=== PATIENT | female | born 1980 | race Two or more races ===

== ENCOUNTER 2024-09-02 04:54 | Inpatient (IN) | payer MEDICAID ==
[~2024-09-02] VITALS: Ht 165.1 cm; Wt 89.3 kg
[2024-09-02 06:22] LABS: Basophils # (auto) 0 10 ^3/uL (0-0.2); Basophils % (auto) 0.4 % (0.0-2.0); Eosinophils # (auto) 0 10 ^3/uL (0-0.8); Eosinophils % (auto) 0.1 % (0.0-7.0); Hematocrit 44.6 % (36.0-46.0); Hemoglobin 15.4 g/dL (12.2-16.2); Lymphocytes % (auto) 10.6 % (10.0-50.0); Mean Corpuscular Hemoglobin 29.4 pg (28.0-32.0); Mean Corpuscular Hgb Conc. 34.5 g/dL (32.0-36.0); Mean Corpuscular Volume 85.1 fL (80.0-100.0); Monocytes # (auto) 0.3 10 ^3/uL (0-1.3); Monocytes % (auto) 3.1 % (0.0-12.0); Neutrophils # (auto) 8.2 10 ^3/uL (1.6-8.6); Neutrophils % (auto) 85.8 % (37.0-80.0); Platelet Count (auto) 222 10^3/uL (140-450); Red Blood Cells 5.24 10^6/uL (4.0-5.20); Red Cell Distribution Width 15.1 % (11.8-14.3); White Blood Cell 9.6 10^3/uL (4.4-10.8)
--- NOTE | 2024-09-02 06:24 | ED.PDOC ---
GI ASSESSMENT HPI Comments 44 y/o F, with no prior medical history presents to the ED for CC of abdominal pain. Patient states, she has been experiencing RUQ abdominal pain that radiates to her back with associated symptoms of nausea and vomiting since, 2100 last night (09/01/24). Patient complains, of current 10/10 abdominal pain and is visibly in distress. Patient denies dysuria, hematuria, or fever. No other symptoms or modifying factors present at this time. Chief Complaint: Abdominal Pain Time Seen by MD: 06:19 Reviewed Notes: Nurses Notes, Medications, Allergies Allergies: Coded Allergies: No Known Drug Allergy (Verified Allergy, Unknown, 09/02/24) Information Source: Patient Mode of Arrival: Ambulatory Timing: Hours Duration: Since onset Prehospital treatment: None Quality: None Vomitus: Watery Stool: Normal Severity: Moderate Recent Hx of: None Pain Location: RUQ Modifying Factors: Nothing Associated sign and symptoms: Nausea, Vomiting, Abdominal Pain Past Medical History PAST MEDICAL HISTORY: Denies Surgical History: [employer]NA[employer] History: Unknown Family History Family History: Unknown Social History Smoker: Non-Smoker Alcohol: Denies ETOH Use Drugs: Denies Drug Use Lives In: Home Constitutional: reports: chills, sweats; denies: diaphoresis, fatigue, fever, malaise, weakness, others EENTM: denies: blurred vision, double vision, ear bleeding, ear discharge, ear drainage, ear pain, ear ringing, eye pain, eye redness, hearing loss, mouth pain, mouth swelling, nasal discharge, nose bleeding, nose congestion, nose pain, photophobia, tearing, throat pain, throat swelling, voice changes, others Respiratory: denies: cough, hemoptysis, orthopnea, SOB at rest, shortness of breath, SOB with excertion, stridor, wheezing, others Cardiovascular: denies: chest pain, dizzy spells, diaphoresis, Dyspnea on exertion, edema, irregular heart beat, left arm pain, lightheadedness, palpitations, PND, syncope, others Gastrointestinal: reports: abdominal pain, nausea, vomiting; denies: abdomen distended, blood streaked bowels, constipated, diarrhea, dysphagia, difficulty swallowing, hematemesis, melena, poor appetite, poor fluid intake, rectal bleeding, rectal pain, others Genitourinary: denies: abnormal vagina bleeding, burning, dyspareunia, dysuria, flank pain, frequency, hematuria, incontinence, pain, , vagina discharge , urgency, others Neurological: denies: dizziness, fainting, headache, left sided numbness, left sided weakness, numbness, paresthesia, pre-existing deficit, right sided numbness, right sided weakness, seizure, speech problems, tingling, tremors, weakness, others Musculoskeletal: reports: back pain; denies: gout, joint pain, joint swelling, muscle pain, muscle stiffness, neck pain, others Integumetry: denies: bruises, change in color, change in hair/nails, dryness, laceration, lesions, lumps, rash, wounds, others Allergic/Immunocompromised: denies: Difficulty Healing, Frequent Infections, Hives, Itching, others Hematologic/Lymphatic: denies: anemia, blood clots, easy bleeding, easy bruising, swollen glands, others Endocrine: denies: excessive hunger, excessive sweating, excessive thirst, excessive urination, flushing, intolerance to cold, intolerance to heat, unexplained weight gain, unexplained weight loss, others Psychiatric: denies: anxiety, bipolar disorder, depression, hopeless, panic disorder, schizophrenia, sleepless, suicidal, others All Other Systems: Reviewed and Negative Physical Exam General Appearance: Moderate Distress, Obese HEENT: Normal ENT Inspection, Pharynx Normal, TMs Normal Neck: Full Range of Motion, Non-Tender, Normal, Normal Inspection Respiratory: Chest Non-Tender, Lungs Clear, No Accessory Muscle Use, No Respiratory Distress, Normal Breath Sounds Cardiovascular: No Edema, No JVD, No Murmur, No Gallop, Normal Peripheral Pul ses, Regular Rate/Rhythm Breast Exam: Deferred Gastrointestinal: No Organomegaly, No Pulsatile Mass, Normal Bowel Sounds, RUQ, Soft, Tenderness Genitalia: Deferred Pelvic: Deferred Rectal: Deferred Extremities: No calf tenderness, Normal capillary refill, Normal inspection, Normal range of motion, Non-tender, No pedal edema Musculoskeletal : Apperance: Normal Neurologic: Alert, cash poster II-XII nml as Tested, No Motor Deficits, Normal Affect, Normal Mood, No Sensory Deficits Cerebellar Function: Normal Reflexes: Normal Skin: Dry, Normal Color, Warm Lymphatic: No Adenopathy Was a procedure done? Was a procedure done?: No GI differential Dx Differential Diagnosis: Cholangitis, Cholecystitis, Pancreatitis X-Ray, Labs, Meds, VS Vital Signs Date Time Temp Pulse Resp B/P (MAP) Pulse Ox O2 Delivery O2 Flow Rate FiO2 09/02/24 07:09 71 16 110/68 09/02/24 07:05 97.9 71 16 110/68 (82) 98 97.9 09/02/24 07:05 71 16 98 Room Air* 0 21 09/02/24 05:29 97.8 83 22 112/73 (86) 98 97.8 Lab Test 09/02/24 05:58 Range/Units White Blood Count 9.6 4.4-10.8 10^3/uL Red Blood Count 5.24 H 4.0-5.20 10^6/uL Hemoglobin 15.4 12.2-16.2 g/dL Hematocrit 44.6 36.0-46.0 % Mean Corpuscular Volume 85.1 80.0-100.0 fL Mean Corpuscular Hemoglobin 29.4 28.0-32.0 pg Mean Corpuscular Hemoglobin Concent 34.5 32.0-36.0 g/dL Red Cell Distribution Width 15.1 H 11.8-14.3 % Platelet Count 222 140-450 10^3/uL Mean Platelet Volume 10.0 6.9-10.8 fL Neutrophils (%) (Auto) 85.8 H 37.0-80.0 % Lymphocytes (%) (Auto) 10.6 10.0-50.0 % Monocytes (%) (Auto) 3.1 0.0-12.0 % Eosinophils (%) (Auto) 0.1 0.0-7.0 % Basophils (%) (Auto) 0.4 0.0-2.0 % Neutrophils # (Auto) 8.2 1.6-8.6 10 ^3/uL Lymphocytes # (Auto) 1.0 0.4-5.4 10 ^3/uL Monocytes # (Auto) 0.3 0-1.3 10 ^3/uL Eosinophils # (Auto) 0 0-0.8 10 ^3/uL Basophils # (Auto) 0 0-0.2 10 ^3/uL Nucleated Red Blood Cells 0.0 % Sodium Level 136 136-145 mmol/L Potassium Level 3.5 3.5-5.1 mmol/L Chloride Level 105 98-107 mmol/L Carbon Dioxide Level 21 20-31 mmol/L Anion Gap 10 5-15 Blood Urea Nitrogen 13 9-23 mg/dL Creatinine 0.75 0.550-1.02 mg/dL Glomerular Filtration Rate Calc 101 >90 mL/min BUN/Creatinine Ratio 17.3 10.0-20.0 Serum Glucose 133 H 74-106 mg/dL Calcium Level 10.0 8.7-10.4 mg/dL Total Bilirubin Pending Direct Bilirubin Pending Aspartate Amino Transferase (AST) Pending Alanine Aminotransferase (ALT) Pending Alkaline Phosphatase Pending Total Protein Pending Albumin Pending Lipase 41 12-53 U/L Current Medications Medications (Trade) Dose Ordered Sig/Ba Route Start Time Stop Time Status Last Admin Ondansetron HCl (Zofran) 4 mg ONCE ONCE IV 09/02/24 06:30 09/02/24 06:31 DC 09/02/24 07:02 Sodium Chloride 1,000 ml @ 1,000 mls/hr Q1H ONCE IVB 09/02/24 06:30 09/02/24 07:29 DC 09/02/24 07:05 Morphine Sulfate 4 mg ONCE ONCE IV 09/02/24 06:30 09/02/24 06:31 DC 09/02/24 07:09 Pantoprazole Sodium (Protonix) 40 mg ONCE ONCE IV 09/02/24 06:30 09/02/24 06:31 DC 09/02/24 07:02 Ultrasound of the gallbladder shows: IMPRESSION: 1. Suspected small gallstone at the gallbladder neck and gallbladder wall thick ening. Acute cholecystitis not excluded, although a negative sonographic Escobar's sign was reported. 2. Common tail artifact associated with the gallbladder wall, may be seen with adenomyomatosis. 3. Mild hepatomegaly. The patient was given Zofran 4 mg IV push for the nausea The patient was given morphine 4 mg IV push for the pain The patient was given Protonix 40 mg IV push The patient was bolused with normal saline at 1 L bolus The patient's lipase is within normal limits The CBC is within normal limits The chemistry panel is within normal limits The liver enzymes are pending The patient was being admitted at this time with a diagnosis of intractable pain and acute cholecystitis Images Reviewed?: Images reviewed and evaluated by me Time of 1ST Reevaluation: 09:49 Reevaluation 1ST: Unchanged Patient Education/Counseling: Diagnosis, Treatment, Prognosis Family Education/Counseling: No Family Present Departure 1 Departure Time of Disposition: 07:34 Impression: Primary Impression: Acute cholecystitis Additional Impression: Intractable abdominal pain Disposition: ADMITTED INPATIENT Admit to: Med Surg Condition: Fair Critical Care Note Critical Care Time?: No Stability Stability form required: Yes Unstable for transfer: ED Physician Assesment (Clinical assesment) Heart Score Heart Score: Heart Score Response (Comments) Value History N/A 0 EKG N/A 0 Age N/A 0 Risk Factors N/A 0 Troponin N/A 0 Total 0 I personally scribed for RD SHERMAN MD ([email or web address]) on 09/02/24 at 06:24. Electronically submitted by Latrice Ling ([email or web address]). RD SHERMAN MD September 02, 2024 06:24
[2024-09-02 06:30] LABS: Chloride 105 mmol/L (98-107); Potassium 3.5 mmol/L (3.5-5.1); Sodium 136 mmol/L (136-145)
[2024-09-02 06:31] LABS: Anion Gap 10 (5-15); Carbon Dioxide 21 mmol/L (20-31)
[2024-09-02 06:37] LABS: BUN/Creatinine Ratio 17.3 (10.0-20.0); Blood Urea Nitrogen 13 mg/dL (9-23); Glucose 133 mg/dL (74-106)
[2024-09-02] MEDS: PANTOPRAZOLE 40 MG/10 ML VIAL INJ IV ONE (07:02)
[2024-09-02] MEDS: ONDANSETRON HCL 4 MG/2 ML VIAL IV ONE (07:02)
[2024-09-02 07:05] VITALS: PULSE 71; RESP 16; O2SAT 98
[2024-09-02] MEDS: SODIUM CHLORIDE 0.9% 1,000 ML IVB ONE (07:05)
--- NOTE | 2024-09-02 07:06 | DVH ---
CLINICAL INFORMATION: 44 years old, Female; pain. TECHNIQUE: Grayscale sonographic imaging of the right upper quadrant of the abdomen was performed, a ssisted by color Doppler techniques. COMPARISON: None FINDINGS: The gallbladder wall measures 5.4 mm in thickness, abnormally thickened. There are areas of suspected, tail artifact, which may be seen with adenomyomatosis in the appropriate clinical sett ing. Suspected shadowing gallstone at the gallbladder neck. Negative reported sonographic escobar's si gn. The common bile duct measures 4.4 mm in diameter, within normal limits. The liver is enlarged, measuring up to 17 cm in craniocaudal dimension. Echogenicity is within normal limits. The pancreas is obscured by bowel gas. The right kidney measures 11.2 cm. There is no hydronephrosis. Right renal cortical echogenicity a nd cortical thickness are within normal limits. IMPRESSION: 1.Suspected small gallstone at the gallbladder neck and gallbladder wall thickening. Acute cholecys titis not excluded, although a negative sonographic Escobar's sign was reported. 2.Common tail artifact associated with the gallbladder wall, may be seen with adenomyomatosis. 3.Mild hepatomegaly.
[2024-09-02] MEDS: MORPHINE SULFATE 4 MG/ML SYR/VIAL IV ONE (07:09)
[2024-09-02 08:03] LABS: Albumin 4.7 g/dL (3.2-4.8); Bilirubin, Direct 0.2 mg/dL (<0.3); Bilirubin, Total 0.8 mg/dL (0.2-1.0); Total Protein 7.7 g/dL (5.7-8.2)
[2024-09-02 08:30] LABS: Urine Bacteria FEW /hpf (None Seen); Urine Blood 3+ /uL (Negative); Urine Clarity Turbid (Clear); Urine Color Light-Brown (Yellow); Urine Protein, UAD TRACE (Negative); Urine Specific Gravity 1.008 (1.001-1.035); Urine Squamous Epithelial Cell FEW /hpf (<5); Urine Urobilinogen Normal (Negative); Urine WBC 18 /HPF (0-5); Urine pH 8.5 (5.0-9.0)
[2024-09-02] MEDS ORDERED: ACETAMINOPHEN 325 MG TAB PO PRN (09:45)
[2024-09-02] MEDS ORDERED: ONDANSETRON HCL 4 MG/2 ML VIAL IV PRN (09:45)
[2024-09-02] MEDS ORDERED: HYDROcodone-ACET 5/325MG TAB PO PRN (09:45)
--- NOTE | 2024-09-02 09:56 | DVHHP2 ---
History of Present Illness Reason for Visit: Abdominal pain History of Present Illness Arina Jimenez is a 44-year-old female with past medical history of C- section who presents to the ED with abdominal pain with nausea and vomiting x1 day. Patient reports that the pain is now 4/10 constant and feels hard after the pain medication. Prior to the pain medication she states it was 10/10. Kirill is at the bedside. Upon examination Cali sign positive. Patient reports that she was vomiting food contents but no blood or bile noted. Patient denies any recent travels, recent sick contacts, recent trauma or injury, fever, chills, chest pain, shortness of breath, diarrhea, lightheadedness, weakness, and dizziness. Patient reports that she does not take medications nor does she drink, smoke, or use illicit drugs. Past Surgical History: Family History: None Smoke: No ALCOHOL: none Drugs: None Lives: with Family Domestic Violence: Neg Review of Systems Gastrointestinal: Nausea, Vomiting, Abdominal Pain Allergies: Coded Allergies: No Known Drug Allergy (Verified Allergy, Unknown, 09/02/24) Medications Current Medications Medications Dose Ordered Sig/Ba Route Start Time Stop Time Status Last Admin Dose Admin Ceftriaxone Sodium 50 ml @ 100 mls/hr DAILY@09 IV 09/02/24 09:45 UNV Exam Vital Signs Vital Signs Date Time Temp Pulse Resp B/P (MAP) Pulse Ox O2 Delivery O2 Flow Rate FiO2 09/02/24 09:33 62 17 120/69 (86) 100 09/02/24 07:05 97.9 97.9 09/02/24 07:05 Room Air* 0 21 General Appearance: Alert, Oriented X3, Cooperative, No acute distress HEENT: Atraumatic, PERRLA, EOMI, Mucous membr. moist/pink Respiratory: Clear to auscultation, Normal air movement Cardiovascular: Regular rate, Normal S1, Normal S2, No murmurs Abdominal: Normal bowel sounds, Soft Extremities: No clubbing, No cyanosis, No edema, Normal pulses Skin: No significant lesion Neuro: Normal gait, Normal speech, Strength at 5/5 X4 ext, Normal tone, Sensation intact Psych/Mental Status: Mental status NL, Mood NL Labs/Xrays Labs Test 09/02/24 08:03 09/02/24 05:58 Range/Units Urine Color Light-brown Yellow Urine Clarity Turbid H Clear Urine pH 8.5 5.0-9.0 Urine Specific [place] 1.008 1.001-1.035 Urine Protein Trace H Negative Urine Ketones 1+ H Negative Urine Blood 3+ H Negative /uL Urine Nitrite Negative Negative Urine Bilirubin Negative Negative Urine Urobilinogen Normal Negative mg/dL Urine Leukocyte Esterase Trace Negative /uL Urine RBC 358 0 - 4 /hpf Urine Microscopic WBC 18 H 0-5 /HPF Urine Squamous Epithelial Cells Few <5 /hpf Urine Bacteria Few H None Seen /hpf Urine Glucose Normal Normal mg/dL Urine Test Negative Negative White Blood Count 9.6 4.4-10.8 10^3/uL Red Blood Count 5.24 H 4.0-5.20 10^6/uL Hemoglobin 15.4 12.2-16.2 g/dL Hematocrit 44.6 36.0-46.0 % Mean Corpuscular Volume 85.1 80.0-100.0 fL Mean Corpuscular Hemoglobin 29.4 28.0-32.0 pg Mean Corpuscular Hemoglobin Concent 34.5 32.0-36.0 g/dL Red Cell Distribution Width 15.1 H 11.8-14.3 % Platelet Count 222 140-450 10^3/uL Mean Platelet Volume 10.0 6.9-10.8 fL Neutrophils (%) (Auto) 85.8 H 37.0-80.0 % Lymphocytes (%) (Auto) 10.6 10.0-50.0 % Monocytes (%) (Auto) 3.1 0.0-12.0 % Eosinophils (%) (Auto) 0.1 0.0-7.0 % Basophils (%) (Auto) 0.4 0.0-2.0 % Neutrophils # (Auto) 8.2 1.6-8.6 10 ^3/uL Lymphocytes # (Auto) 1.0 0.4-5.4 10 ^3/uL Monocytes # (Auto) 0.3 0-1.3 10 ^3/uL Eosinophils # (Auto) 0 0-0.8 10 ^3/uL Basophils # (Auto) 0 0-0.2 10 ^3/uL Nucleated Red Blood Cells 0.0 % Sodium Level 136 136-145 mmol/L Potassium Level 3.5 3.5-5.1 mmol/L Chloride Level 105 98-107 mmol/L Carbon Dioxide Level 21 20-31 mmol/L Anion Gap 10 5-15 Blood Urea Nitrogen 13 9-23 mg/dL Creatinine 0.75 0.550-1.02 mg/dL Glomerular Filtration Rate Calc 101 >90 mL/min BUN/Creatinine Ratio 17.3 10.0-20.0 Serum Glucose 133 H 74-106 mg/dL Calcium Level 10.0 8.7-10.4 mg/dL Total Bilirubin 0.8 0.2-1.0 mg/dL Direct Bilirubin 0.2 <0.3 mg/dL Aspartate Amino Transferase (AST) 28 13-40 U/L Alanine Aminotransferase (ALT) 53 H 7-40 U/L Alkaline Phosphatase 88 46-116 U/L Total Protein 7.7 5.7-8.2 g/dL Albumin 4.7 3.2-4.8 g/dL Lipase 41 12-53 U/L CT ABDOMEN AND PELVIS WITHOUT CONTRAST CLINICAL HISTORY: abd pain TECHNIQUE: Multiple contiguous axial images of the abdomen and pelvis without intravenous contrast. The images were reformatted degenerate coronal and sagittal reconstructions. All CT scans at this medical facility are performed using dose modulation techniques as appropriate to a performed exam including the following:Automated exposure control was utilized; adjustment of the MA and/or KV according to patient size; and use of iterative reconstruction technique. Radiation Dose Information: CT Dose: CTDI volume is 12 mGy. Dose-length product is 676 mGy*cm Comparison: Gallbladder ultrasound 09/02/2024 FINDINGS: Evaluation of the abdomen and pelvis is limited without intravenous contrast. There is a distended gallbladder with tiny gallstones in the fundus. There is no significant biliary ductal dilatation. There is no significant pericholecystic fat stranding or fluid collection. The liver, pancreas, kidneys, adrenal glands, and spleen appear within normal limits. There is no gross evidence of abdominal lymphadenopathy. There is no free fluid or free air. The stomach grossly appears unremarkable. The small and large bowel loops demonstrate normal caliber and distribution. A normal appearing appendix is seen in the right lower quadrant abdomen. The abdominal aorta and IVC appear within normal limits. The bladder appears unremarkable for the degree of distention. Uterus appears within normal limits.. There is no gross evidence of a pelvic mass. There is no free fluid collection. Lung bases are clear. There is no acute osseous abnormality. IMPRESSION: 1. Fluid distended gallbladder with tiny gallstones. There is no significant biliary ductal dilatation. There is no significant pericholecystic fat stranding or fluid collection. Clinical correlation is recommended. CLINICAL INFORMATION: 44 years old, Female; pain. TECHNIQUE: Grayscale sonographic imaging of the right upper quadrant of the abdomen was performed, assisted by color Doppler techniques. COMPARISON: None FINDINGS: The gallbladder wall measures 5.4 mm in thickness, abnormally thickened. There are areas of suspected, tail artifact, which may be seen with adenomyomatosis in the appropriate clinical setting. Suspected shadowing gallstone at the gallbladder neck. Negative reported sonographic cali's sign. The common bile duct measures 4.4 mm in diameter, within normal limits. The liver is enlarged, measuring up to 17 cm in craniocaudal dimension. Echogenicity is within normal limits. The pancreas is obscured by bowel gas. The right kidney measures 11.2 cm. There is no hydronephrosis. Right renal cortical echogenicity and cortical thickness are within normal limits. IMPRESSION: 1. Suspected small gallstone at the gallbladder neck and gallbladder wall thickening. Acute cholecystitis not excluded, although a negative sonographic Cali's sign was reported. 2. Common tail artifact associated with the gallbladder wall, may be seen with adenomyomatosis. 3. Mild hepatomegaly. Assessment/Plan Assessment/Plan Assessment Intractable abdominal pain with nausea and vomiting probable UTI versus acute cholecystitis History of Plan Admit to [facility] [place] UA PPIs Antiemetics Pain management NS 1 L given ED Hepatic panel HCG Ultrasound gallbladder noted Lipase CT abdomen and pelvis ordered IV antibiotics-ceftriaxone LFTs Amylase Lipase NPO IV fluids Bowel series Per patient no home medications that she takes DVT prophylaxis-SCDs PUD prophylaxis-PPIs Discussed plan of care with patient, patient's spouse, and nurse General surgery consult Plan discussed with: Patient, Spouse My Orders Orders - MARIA LUISA CABRERA Procedure Category Date Status Time Ct Ab Pel Wo Con-No CT 09/02/24 Logged Oral Or Iv 09:39 Ceftriaxone 1gm/50ml PHA 09/02/24 Logged D5w (Rocephin) 09:45 Amylase LAB 09/02/24 Logged 09:39 Lipase LAB 09/02/24 Logged 09:39 Bilirubin, Total LAB 09/02/24 Logged 09:39 Alanine LAB 09/02/24 Logged Aminotransferase 09:39 Aspartate Amino LAB 09/02/24 Logged Transferase 09:39 Alkaline Phosphatase LAB 09/02/24 Logged 09:39 Admit ADMIT 09/02/24 Transmitted 09:43 Allergies ROD 09/02/24 Transmitted 09:43 Code Status CODE 09/02/24 Transmitted 09:43 0.9% Ns 1000 Ml PHA 09/02/24 Transmitted 09:45 Hydrocodone-Acet PHA 09/02/24 Transmitted 5/325mg Tab ([place] 09:45 Ondansetron Hcl PHA 09/02/24 Transmitted (Zofran) 09:45 Complete Blood Count LAB 09/03/24 Verified 04:00 Comprehensive LAB 09/03/24 Verified Metabolic Panel 04:00 Npo (Nothing By DIET 09/02/24 Transmitted Mouth) Diet Lunch Acetaminophen Tablet PHA 09/02/24 Transmitted (Tylenol Tablet) 09:45 Morphine Sulfate PHA 09/02/24 Transmitted Injection 09:45 Sequential ROD 09/02/24 Transmitted Compression Device Date of Service: September 02, 2024 Billing Provider: MARIA LUISA CABRERA Common Visit Codes: 78969-[id number] INP/OBS CARE (HIGH) MARIA LUISA CABRERA September 02, 2024 09:56
[2024-09-02 10:11] LABS: Bilirubin, Total 0.7 mg/dL (0.2-1.0)
--- NOTE | 2024-09-02 10:13 | DVH ---
CT ABDOMEN AND PELVIS WITHOUT CONTRAST CLINICAL HISTORY: abd pain TECHNIQUE: Multiple contiguous axial images of the abdomen and pelvis without intravenous contrast. T he images were reformatted degenerate coronal and sagittal reconstructions. All CT scans at this medical facility are performed using dose modulation techniques as appropriate t o a performed exam including the following:Automated exposure control was utilized; adjustment of the MA and/or KV according to patient size; and use of iterative reconstruction technique. Radiation Dose Information: CT Dose: CTDI volume is 12 mGy. Dose-length product is 676 mGy*cm Comparison: Gallbladder ultrasound 09/02/2024 FINDINGS: Evaluation of the abdomen and pelvis is limited without intravenous contrast. There is a distended gallbladder with tiny gallstones in the fundus. There is no significant biliary ductal dilatation. There is no significant pericholecystic fat stranding or fluid collection. The l iver, pancreas, kidneys, adrenal glands, and spleen appear within normal limits. There is no gross evidence of abdominal lymphadenopathy. There is no free fluid or free air. The stomach grossly appears unremarkable. The small and large bowel loops demonstrate normal caliber and distribution. A normal appearing appendix is seen in the right lower quadrant abdomen. The abdominal aorta and IVC appear within normal limits. The bladder appears unremarkable for the degree of distention. Uterus appears within normal limits.. There is no gross evidence of a pelvic mass. There is no free fluid collection. Lung bases are clear. There is no acute osseous abnormality. IMPRESSION: 1. Fluid distended gallbladder with tiny gallstones. There is no significant biliary ductal dilatatio n. There is no significant pericholecystic fat stranding or fluid collection. Clinical correlation is recommended. HS:Y
[2024-09-02 10:17] VITALS: BP 92/63; PULSE 53; RESP 18; RESP 19; TEMP 97.9; O2SAT 100; O2SAT 97
[2024-09-02 10:25] VITALS: BP 92/63; PULSE 53; RESP 18; TEMP 97.9; O2SAT 100
[2024-09-02] MEDS: SODIUM CHLORIDE 0.9% 1,000 ML IV SCH (11:21)
[2024-09-02] MEDS: cefTRIAXone 1GM/50ML D5W 50 ML IV SCH (11:22)
[2024-09-02 13:26] VITALS: BP 97/67; PULSE 53; RESP 16; TEMP 97.5; O2SAT 98
[2024-09-02 17:05] VITALS: BP 86/56; PULSE 55; RESP 16; TEMP 97.4; O2SAT 97
--- NOTE | 2024-09-02 17:26 | DVH ---
MRI Abdomen, MRCP without IV Contrast Exam Date: 09/02/2024 02:40 PM Comparison: CT dated 09/02/2024 and ultrasound dated 09/02/2024 History: Choledocholithiasis Technique: Multisequence multiplanar MRI images were obtained of the abomen. MRCP including 3D SPACE, Radial 2D slabs and SPACE 3D MIP images Findings: Liver: The liver is normal in size without focal lesions. Normal liver contour. Spleen: Unremarkable. Pancreas: The pancreas is normal in appearance without focal lesions. Gallbladder and ducts: Cholelithiasis. Moderate pericholecystic edema. No biliary duct dilation. Po ssible small volume sludge versus artifact in the mid common bile duct. The pancreatic duct is within normal limits. Adrenal glands: Unremarkable. Kidneys: Normal enhancement without suspicious lesions or hydronephrosis. Visualized bowel: Grossly unremarkable. Vasculature: Unremarkable. Lymphadenopathy: No evidence for lymphadenopathy. Ascites: Absent. Musculoskeletal: Bone marrow signal is normal. IMPRESSION: Limited examination secondary to patient motion artifact. Cholelithiasis and moderate pericholecystic edema. Small volume sludge versus artifact in the mid common bile duct. Clinical correlation advised. ERCP c ould be obtained to further evaluate if clinically indicated.
[2024-09-02 21:59] VITALS: BP 97/56; PULSE 57; RESP 16; TEMP 98.1; O2SAT 97
[2024-09-03 01:00] VITALS: BP 96/54; PULSE 71; RESP 18; TEMP 97.5; O2SAT 96
[2024-09-03 05:00] VITALS: BP 93/62; PULSE 68; RESP 17; TEMP 98; O2SAT 93
[2024-09-03 07:54] LABS: Basophils # (auto) 0 10 ^3/uL (0-0.2); Basophils % (auto) 0.6 % (0.0-2.0); Eosinophils # (auto) 0.1 10 ^3/uL (0-0.8); Eosinophils % (auto) 1.6 % (0.0-7.0); Hemoglobin 13.7 g/dL (12.2-16.2); Lymphocytes # (auto) 1.8 10 ^3/uL (0.4-5.4); Lymphocytes % (auto) 35.8 % (10.0-50.0); Mean Corpuscular Hemoglobin 29.6 pg (28.0-32.0); Mean Corpuscular Hgb Conc. 34.3 g/dL (32.0-36.0); Mean Corpuscular Volume 86.2 fL (80.0-100.0); Monocytes # (auto) 0.4 10 ^3/uL (0-1.3); Monocytes % (auto) 8.5 % (0.0-12.0); Neutrophils # (auto) 2.7 10 ^3/uL (1.6-8.6); Neutrophils % (auto) 53.5 % (37.0-80.0); Nucleated Red Blood Cells % 0.1 %; Platelet Count (auto) 174 10^3/uL (140-450); Red Blood Cells 4.64 10^6/uL (4.0-5.20); Red Cell Distribution Width 15.1 % (11.8-14.3)
[2024-09-03 08:13] LABS: Albumin 3.7 g/dL (3.2-4.8); Alkaline Phosphatase 67 U/L (46-116); Anion Gap 10 (5-15); Aspartate Aminotransferase 30 U/L (13-40); BUN/Creatinine Ratio 13.4 (10.0-20.0); Bilirubin, Total 0.7 mg/dL (0.2-1.0); Blood Urea Nitrogen 9 mg/dL (9-23); Carbon Dioxide 23 mmol/L (20-31); Glucose 74 mg/dL (74-106); Sodium 143 mmol/L (136-145); Total Protein 6.1 g/dL (5.7-8.2)
[2024-09-03 08:16] LABS: Alanine Aminotransferase 43 U/L (7-40); Calcium 8.6 mg/dL (8.7-10.4); Chloride 110 mmol/L (98-107); Potassium 3.5 mmol/L (3.5-5.1)
[2024-09-03 09:00] VITALS: BP 106/66; PULSE 56; RESP 16; TEMP 98.4; O2SAT 91
--- NOTE | 2024-09-03 10:24 | DVH ---
Date: 09/03/2024 07:47 AM Examination: XY KUB ABDOMEN SINGLE VIEW History: r/o acute [place] Comparison: None TECHNIQUE: Frontal views of the abdomen was obtained. FINDINGS: Bowel gas pattern is unremarkable. The lung bases are unremarkable. No acute osseous abnormality identified. IMPRESSION: Nonobstructive bowel gas pattern.
[2024-09-03 10:51] LABS: INR 1.03 (0.9-1.15); Prothrombin Time 10.9 sec (9.3-11.8)
--- NOTE | 2024-09-03 11:39 | DVHINCON2 ---
DATE OF CONSULTATION: 09/03/2024 SURGICAL CONSULTATION HISTORY OF PRESENT ILLNESS: The patient is a 44-year-old female prior history of two C-sections presenting with nausea, vomiting, abdominal pain mostly in the right upper quadrant and radiating to the right shoulder and mid back. The patient takes no medications. Has no chronic illness history. She is a nonsmoker, nondrinker. Uses no illicit drugs. She has no known medicinal allergies. REVIEW OF SYSTEMS: Noncontributory to the current illness in all 12 systems reviewed. PHYSICAL EXAMINATION: GENERAL: Well-developed well-nourished female in no acute distress. HEENT: Pupils are equal, round, reactive to light equally. Sclerae nonicteric. Extraocular motion is intact. Uvula midline. Trachea midline. Carotids supple without bruits. Jugular veins are collapsed. HEART: Regular rate and rhythm without murmur or gallop. ABDOMEN: Tender in the right upper quadrant. There is no CVA tenderness. EXTREMITIES: No peripheral vascular insufficiency. No venous stasis. LABORATORY EVALUATION: Revealed a normal white count with slight left shift, normal H and H. Coags are pending at the time of this dictation. The patient's chemistry shows normal bilirubin, normal liver enzymes with the exception of slightly elevated ALT. IMAGING: Imaging was done by means of a gallbladder ultrasound which showed small gallstone at the gallbladder neck and it also showed gallbladder wall thickening. Subsequently, she had a pelvic and abdominal CT scan which was done without contrast and shows distended gallbladder with tiny gallstones without any ductal dilatation. The patient had an MRCP done which confirms the diagnosis of cholelithiasis with some pericholecystic edema. DIAGNOSES: * Cholelithiasis. * Cholecystitis. Treatment suggested is laparoscopic versus open cholecystectomy. Operation risks and potential complications explained in detail to the patient. We will proceed tomorrow morning. MD EMILY Corado/NASRIN TID: [id number] RECEIPT: [id number]
--- NOTE | 2024-09-03 12:24 | DVHPNRES ---
Progress Note Date Seen: September 03, 2024 Resident Creating Document: CRYSTAL GUPTA RESIDENT Has the PT tested + for MRSA If YES, has PT been informed?: No Medical Necessity Reason Pt with a Central, PICC or Fol: No Subjective Review of Systems This is a 44-year-old female with no past medical history of relevance aside from history of who presented to the ED with chief complaint of abdominal pain. The patient reported a right upper quadrant sharp pain rated as 10/10 that gets worse after eating food. The patient described a localized pain in the right upper quadrant that occasionally radiates to the right shoulder and back. Patient states that does not take any medication. The patient denied any associated nausea, vomiting, fever/chills or any other symptoms. On Admission, CBC and BNP were grossly unremarkable including total bilirubin and liver enzymes. Lipase and amylase were also normal range. Urinalysis came back positive suggesting UTI. We ordered a gallbladder ultrasound which showed cholelithiasis but acute cholecystitis was not able to be excluded. CT of the abdomen showed fluid distended gallbladder with tiny gallstones. MRCP was performed as well showing cholelithiasis and moderate pericholecystic edema, there was also small volume sludge versus artifact in the mid common bile duct. Surgery was consulted for possible acute cholecystitis and patient was admitted for further assessment and management. Patient seen and examined at bedside. Patient is alert and oriented in person, place and time. Patient is not in experiencing significant abdominal pain at this time. But upon my examination there was mild tenderness to palpation of the right upper quadrant. Escobar sign was not 100% positive or evident but patient reported mild tenderness to palpation. Patient denies chest pain, shortness of breath, fever/chills, nausea, vomiting or any other symptoms at this time. Surgery evaluated the patient and determine that patient is good candidate for either laparoscopic or open cholecystectomy which we will be performed tomorrow a.m.. ROS: Constitutional: Denies weight loss, fever and chills. HEENT: Denies changes in vision and hearing. Respiratory: Denies shortness of breath and cough Cardiovascular: Denies chest discomfort or palpitations GI: Reports mild to moderate right upper quadrant abdominal tenderness to palpation. Denies nausea or vomiting. : Denies dysuria and urinary frequency. Musculoskeletal: Denies myalgias and joint pain Skin: Denies rash and pruritus. Neurological: Denies dizziness, headache, vision or hearing problems Objective vital signs Vital Sign Date Time Temp Pulse Resp B/P (MAP) Pulse Ox O2 Delivery O2 Flow Rate FiO2 09/03/24 09:00 98.4 56 16 106/66 (79) 91 98.4 09/02/24 10:17 Room Air* 0 21 Total Intake and Output 09/02/24 09/02/24 09/03/24 15:00 23:00 07:00 Intake Total 1000 ml 650 ml 0 ml Balance 1000 ml 650 ml 0 ml medications Current Medications Medications Dose Ordered Sig/Ba Route Start Time Stop Time Status Last Admin Dose Admin Ceftriaxone Sodium 50 ml @ 100 mls/hr DAILY@09 IV 09/02/24 09:45 09/03/24 10:26 100 MLS/HR Sodium Chloride 1,000 ml @ 100 mls/hr Q10H IV 09/02/24 09:45 09/02/24 23:48 100 MLS/HR Acetaminophen/ Hydrocodone Bitart 1 tab Q4HP PRN PO 09/02/24 09:45 Ondansetron HCl 4 mg Q4HP PRN IV 09/02/24 09:45 Acetaminophen 650 mg Q6HP PRN PO 09/02/24 09:45 Morphine Sulfate 2 mg Q4HPRN PRN IV 09/02/24 09:45 Piperacillin Sod/ Tazobactam Sod 100 ml @ 25 mls/hr Q6HR IV 09/03/24 12:00 UNV Examination Physical Examination General: Patient alert and oriented in person, place and time. Patient following commands. HEENT: Normocephalic, atraumatic, moist mucous membranes Respiratory/pulmonary: Clear lungs bilaterally, no associated crackles or wheezes. Cardiovascular: Normal heart sounds S1 and S2 with no associated murmurs Abdomen: Abdomen nondistended, there is mild to moderate tenderness to deep palpation of the right upper quadrant but Escobar's sign was negative. No masses palpated at this time. Extremities: There is no peripheral edema present at the lower extremities. Peripheral Pulses: 3+ Radial (R). 3+ Radial (L). 3+ Dorsalis pedis (R). 3+ Dorsalis pedis(L) Skin: No rashes or pruritus, there is no sacral edema present at this time. Neurological: Intact cranial nerves with no focal neurologic deficits laboratory and microbiology Laboratory Tests 09/03/24 07:01 Test 09/03/24 07:01 Range/Units Serum Glucose 74 74-106 mg/dL Labs and/or images reviewed: Labs reviewed by me, Image(s) reviewed by me Problem List/Assessment/Plan Problem List/Assessment/Plan Assessment/plan Acute right upper quadrant abdominal pain likely due to acute cholelithiasis Possible acute cholecystitis Ruled out pancreatitis Ruled out appendicitis -gallbladder ultrasound showed cholelithiasis but acute cholecystitis was not able to be excluded -CT scan of the abdomen showed fluid distended gallbladder with tiny gallstones -MRCP showed cholelithiasis and moderate pericholecystic edema. -Lipase was 43 -surgery was consulted and scheduled patient for surgery tomorrow a.m.(laparoscopic versus open cholecystectomy) -keep NPO after midnight -start IV Zosyn -continue IV fluids 100 cc/hour -pain medication UTI -urinalysis suggestive UTI -on IV antibiotics Goals of care discussed with the patient and at bedside for 20min, FULL CODE Plan discussed with Dr. Julien Plan discussed with: Patient, Other (RN) My Orders My Orders Orders - CRYSTAL GUPTA Procedure Category Date Status Time Drug Screen LAB 09/03/24 Logged 09:36 Piperacillin-Tazob PHA 09/03/24 Logged 3.375gm (Zosyn 3.375g 12:00 Mechanical Soft Diet DIET 09/03/24 Transmitted Lunch Addendum Addendum Addendum I was physically present for the zamorano portions of the service provided to patient by THE RESIDENT. I have reviewed the documentation, discussed the case with resident and agree with the resident's documentation except as noted. Also the patient's clinical case was discussed with the patient's nurse. This medical document was created using an electronic medical record system with computerized dictation system. Although this document has been carefully reviewed, there might still be some phonetic and typographical errors. These areas are purely typographical due to imperfections of the software programs, and do not reflect any compromise in the patient's medical care. Late signature. Date of Service: September 03, 2024 Billing Provider: LISSY JULIEN MD Common Visit Codes: [id number] INP/OBS CARE(HIGH) Secondary Visit Codes: [id number] CARE PLAN 30 MINUTES (20 minutes) CRYSTAL GUPTA September 03, 2024 12:24 LISSY JULIEN MD September 04, 2024 04:55
[2024-09-03] MEDS: PIPERACILLIN-TAZOB 3.375GM 100 ML IV ONE (13:20)
[2024-09-03 17:00] VITALS: BP 134/70; PULSE 62; RESP 16; TEMP 98.5; O2SAT 94
[2024-09-03 21:00] VITALS: BP 98/72; PULSE 59; RESP 18; TEMP 98.6; O2SAT 96
[2024-09-03] MEDS: PIPERACILLIN-TAZOB 3.375GM 100 ML IV SCH (21:32)
[2024-09-04] VITALS (8 sets, daily range): BP systolic 94–115; BP diastolic 60–75; PULSE 51–93; RESP 16–21; TEMP 96.5–98.6; O2SAT 93–98
[2024-09-04 07:18] LABS: Basophils # (auto) 0 10 ^3/uL (0-0.2); Basophils % (auto) 0.7 % (0.0-2.0); Eosinophils # (auto) 0.1 10 ^3/uL (0-0.8); Eosinophils % (auto) 2.6 % (0.0-7.0); Hematocrit 39.6 % (36.0-46.0); Hemoglobin 13.5 g/dL (12.2-16.2); Lymphocytes # (auto) 1.6 10 ^3/uL (0.4-5.4); Lymphocytes % (auto) 39.5 % (10.0-50.0); Mean Corpuscular Hemoglobin 29.2 pg (28.0-32.0); Mean Corpuscular Hgb Conc. 34.1 g/dL (32.0-36.0); Mean Corpuscular Volume 85.5 fL (80.0-100.0); Monocytes # (auto) 0.3 10 ^3/uL (0-1.3); Monocytes % (auto) 8.2 % (0.0-12.0); Nucleated Red Blood Cells % 0.1 %; Platelet Count (auto) 182 10^3/uL (140-450); Red Blood Cells 4.63 10^6/uL (4.0-5.20); Red Cell Distribution Width 14.8 % (11.8-14.3)
[2024-09-04 07:24] LABS: Sodium 143 mmol/L (136-145)
[2024-09-04 07:25] LABS: Anion Gap 8 (5-15); Calcium 8.9 mg/dL (8.7-10.4); Carbon Dioxide 25 mmol/L (20-31)
[2024-09-04 07:30] LABS: BUN/Creatinine Ratio 14.7 (10.0-20.0); Blood Urea Nitrogen 11 mg/dL (9-23); Glucose 78 mg/dL (74-106)
[2024-09-04 07:32] LABS: Chloride 110 mmol/L (98-107); Potassium 3.5 mmol/L (3.5-5.1)
[2024-09-04] MEDS ORDERED: MIDAZOLAM HCL 2MG/2ML 2ml VIAL (1mg/ml) ONE (07:58)
[2024-09-04] MEDS ORDERED: fentaNYL CITRATE 100 MCG/2 ML VL ONE (07:58)
[2024-09-04] MEDS ORDERED: METOCLOPRAMIDE HCL 5MG/ml INJ 2ml VIAL ONE (07:59)
[2024-09-04] MEDS ORDERED: DexAMETHasone SOD PHOS 10MG/1ML VIAL INJ ONE (07:59)
[2024-09-04] MEDS ORDERED: ONDANSETRON HCL 4 MG/2 ML VIAL ONE (07:59)
[2024-09-04] MEDS ORDERED: LIDOCAINE HCL 100 MG/5ML (2%) SYRG INJ IV ONE (07:59)
[2024-09-04] MEDS ORDERED: PROPOFOL 10 MG/ML 20 ML IV ONE (07:59)
[2024-09-04] MEDS ORDERED: ROCURONIUM 10MG/ML 10ML VIAL IV ONE (07:59)
[2024-09-04] MEDS ORDERED: diphenhdrAMINE HCL 50 MG/1 ML VL ONE (07:59)
[2024-09-04] MEDS ORDERED: GLYCOPYRROLATE 0.2 MG/ML 1ML VIAL ONE (07:59)
[2024-09-04] MEDS: LIDOCAINE W/ EPINEPHRINE 1% 20ML VIAL ONE (08:36)
[2024-09-04] MEDS: BUPIVACAINE 0.5% P/F INJ 10 ML VIAL ONE (08:36)
[2024-09-04] MEDS ORDERED: KETOROLAC TROMETH 30 MG/ML 1ML VIAL ONE (08:51)
[2024-09-04] MEDS ORDERED: SUGAMMADEX 200mg/2ml Vial (100MG/ML) IV ONE (08:51)
--- NOTE | 2024-09-04 09:12 | DVHOP ---
DATE OF SURGERY: 09/04/2024 PREOPERATIVE DIAGNOSES: * Cholelithiasis. * Cholecystitis. POSTOPERATIVE DIAGNOSES: * Cholelithiasis. * Cholecystitis. SURGEON: Darren Medrano MD INTERNATIONAL MARKETING INTERN: Bryce Stovall NP ANESTHESIA: General endotracheal TELEPHONE CLERK TELEGRAPH OFFICE. PROCEDURES: * Laparoscopy. * Laparoscopic cholecystectomy. DESCRIPTION OF PROCEDURE: Under general endotracheal anesthesia with the patient's skin prepped and draped, supraumbilical incision was made and Veress needle inserted by the hanging drop technique to establish pneumoperitoneum to 15 mmHg pressure by insufflation with carbon dioxide. With the abdomen fully distended, the needle was removed and replaced with a 5 mm trocar port through which a 0-degree viewing laparoscope was inserted and under direct vision, 5 and 10 mm ports inserted through the abdominal wall in the anterior axillary line at the level of the umbilicus and the subxiphoid midline skin respectively. Instrumentation was then introduced. Laparoscopy was conducted. There was no evidence of unexpected pathology. The gallbladder was acutely inflamed, infected, and was placed on tension. The cystic duct and cystic artery were circumferentially dissected, skeletonized, and traced into the hepatocystic triangle so as to minimize the potential for inadvertent injury to the common bile duct. The cystic duct and cystic artery were then divided between metallic clips again away from the common duct so as to minimize potential for injury to the common duct. Subsequently, the gallbladder was resected from its liver bed. Part of the gallbladder was intrahepatic which resulted in exposure of some of the liver parenchyma which necessitated application of small amount of hemostatic SNoW in order to assist with hemostasis. The fully mobilized gallbladder was removed from the peritoneal cavity through the subxiphoid 10 mm port site. The right upper quadrant was profusely irrigated. Irrigant was aspirated. Hemostasis was found to be complete. At the termination of the procedure, there was no evidence of bleeding from either the port sites or from the liver bed. The instrumentation was withdrawn. Pneumoperitoneum was evacuated. Fascial defect closed using 0 Vicryl. Wound was approximated using Monocryl sutures, Dermabond glue, and Steri-Strips. The patient remained stable throughout the procedure, left the operating room following an accurate needle and sponge count. Her , Kirill, was thoroughly informed at [phone]. MD EMILY Corado/NASRIN TID: [id number] RECEIPT: [id number]
[2024-09-04] MEDS ORDERED: HYDROmorphone HCL 2 MG/ML VL/or syr IV PRN ×2 (09:15)
[2024-09-04] MEDS: HYDROmorphone HCL 2 MG/ML VL/or syr IV PRN (10:11)
--- NOTE | 2024-09-04 15:26 | DVHPN2 ---
Subjective The patient is seen and examined at bedside. The patient complained of pain in her surgery area. No nausea or vomiting. The patient did not pass any flatus or bowel movement. The patient is status post surgery this morning. Reviewed: Care Plan, H&P, Labs, Medications, Previous Orders, Radiology Changes from previous H/P or p: No Changes Gastrointestinal: Nausea, Vomiting, Abdominal Pain Objective Vitals Vital Signs Date Time Temp Pulse Resp B/P (MAP) Pulse Ox O2 Delivery O2 Flow Rate FiO2 09/04/24 12:47 98.3 56 20 94/62 (73) 93 98.3 09/04/24 09:35 Nasal Cannula 2.0 09/03/24 20:15 21 Intake/Output Intake and Output 09/04/24 07:00 Intake Total 500 ml Balance 500 ml Intake Oral 350 ml IV Total 150 ml # Voids 6 General Appearance: Alert, Oriented X3, Cooperative, No acute distress HEENT: Atraumatic, PERRLA, EOMI, Mucous membr. moist/pink Neck: Supple Lungs: Clear to auscultation, Normal air movement Cardiovascular: Regular rate, Normal S1, Normal S2, Gallops, Rubs Abdomen: Normal bowel sounds, Soft, No tenderness Neuro: Cranial nerves 3-12 NL Psych/Mental Status: Mental status NL Medications Current Medications Medications Dose Ordered Sig/Ba Route Start Time Stop Time Status Last Admin Dose Admin Sodium Chloride 1,000 ml @ 100 mls/hr Q10H IV 09/02/24 09:45 09/04/24 01:45 100 MLS/HR Acetaminophen/ Hydrocodone Bitart 1 tab Q4HP PRN PO 09/02/24 09:45 Ondansetron HCl 4 mg Q4HP PRN IV 09/02/24 09:45 Acetaminophen 650 mg Q6HP PRN PO 09/02/24 09:45 Morphine Sulfate 2 mg Q4HPRN PRN IV 09/02/24 09:45 Piperacillin Sod/ Tazobactam Sod 100 ml @ 25 mls/hr Q8HR@0500,1300,2100 IV 09/03/24 21:00 09/04/24 13:15 25 MLS/HR Laboratory Results Laboratory Tests 09/04/24 05:58 Chemistry Test 09/04/24 05:58 Calcium Level 8.9 mg/dL (8.7-10.4) Urinalysis Test 09/02/24 08:03 Urine Color Light-brown (Yellow) Urine Clarity Turbid (Clear) H Urine pH 8.5 (5.0-9.0) Urine Specific [place] 1.008 (1.001-1.035) Urine Protein Trace (Negative) H Urine Ketones 1+ (Negative) H Urine Blood 3+ /uL (Negative) H Urine Nitrite Negative (Negative) Urine Bilirubin Negative (Negative) Urine Urobilinogen Normal mg/dL (Negative) Urine Leukocyte Esterase Trace /uL (Negative) Urine RBC 358 /hpf (0 - 4) Urine Microscopic WBC 18 /HPF (0-5) H Urine Squamous Epithelial Cells Few /hpf (<5) Urine Bacteria Few /hpf (None Seen) H Urine Glucose Normal mg/dL (Normal) Urine Test Negative (Negative) Labs and/or images reviewed: Labs reviewed by me Assessment/Plan Assessment/Plan Acute right upper quadrant abdominal pain likely due to acute cholelithiasis Possible acute cholecystitis UTI Continuing current management. Continuing with IV fluid. Continuing with IV antibiotics Zosyn. Continuing with pain medication for pain Control. Continuing with Zofran p.r.n. for nausea or vomiting. Advance diet per surgeon. This medical document was created using an electronic medical record system with M*M flurency direct computerized dictation system. Although this document has been carefully reviewed, there may still be some phonetic and typographical errors. These areas are purely typographical due to imperfections of the software programs, and do not reflect any compromise in the patient's medical care. Plan discussed with: Patient Date of Service: September 04, 2024 Billing Provider: JUSTINA DORAN MD Common Visit Codes: [id number] INP/OBS CARE(HIGH) JUSTINA DORAN MD September 04, 2024 15:26
[2024-09-04] MEDS: MORPHINE SULFATE INJ 2 MG/ml SYRG IV PRN (22:27)
[2024-09-05] VITALS (7 sets, daily range): BP systolic 92–103; BP diastolic 57–66; PULSE 50–60; RESP 17–19; TEMP 96.4–98.4; O2SAT 93–98
--- NOTE | 2024-09-05 07:28 | DVHPN2 ---
Subjective Date Seen: September 05, 2024 Post op day Post op day: 1 Patient reports: No new complaints Nursing reports: No new complaints General: Normal HNT: Normal Cardiovascular: Normal Respiratory: Normal Gastrointestinal: Normal Genitourinary: Normal Musculoskeletal: Normal Neurological: Normal Objective Vitals Vital Sign Date Time Temp Pulse Resp B/P (MAP) Pulse Ox O2 Delivery O2 Flow Rate FiO2 09/05/24 05:00 96.6 56 19 98/59 (72) 95 96.6 09/04/24 20:00 Room Air* 0 21 Total Intake and Output 09/04/24 09/04/24 09/05/24 15:00 23:00 07:00 Intake Total 1140 ml 320 ml Output Total 1000 ml Balance 140 ml 320 ml Medications Current Medications Medications Dose Ordered Sig/Ba Route Start Time Stop Time Status Last Admin Dose Admin Sodium Chloride 1,000 ml @ 100 mls/hr Q10H IV 09/02/24 09:45 09/04/24 22:25 100 MLS/HR Acetaminophen/ Hydrocodone Bitart 1 tab Q4HP PRN PO 09/02/24 09:45 Ondansetron HCl 4 mg Q4HP PRN IV 09/02/24 09:45 Acetaminophen 650 mg Q6HP PRN PO 09/02/24 09:45 Morphine Sulfate 2 mg Q4HPRN PRN IV 09/02/24 09:45 09/04/24 22:27 2 MG Piperacillin Sod/ Tazobactam Sod 100 ml @ 25 mls/hr Q8HR@0500,1300,2100 IV 09/03/24 21:00 09/05/24 05:13 25 MLS/HR General: Normal, Well developed, Well nourished Head/Eyes: Normal ENT: Normal Neck: Normal Lungs: Normal Cardiovascular: Regular rate and rhythm Abdominal: Normal, Soft Musculoskeletal: Normal Extremities: Normal Skin: Normal, Normal inspection, Normal color Labs and Microbiology Laboratory Tests 09/04/24 05:58 Test 09/04/24 05:58 Range/Units Serum Glucose 78 74-106 mg/dL Ass/Plan Labs and/or images reviewed: Labs reviewed by me, Image(s) reviewed by me Problem List Assessment/plan Acute right upper quadrant abdominal pain likely due to acute cholelithiasis Possible acute cholecystitis Ruled out pancreatitis Ruled out appendicitis -gallbladder ultrasound showed cholelithiasis but acute cholecystitis was not able to be excluded -CT scan of the abdomen showed fluid distended gallbladder with tiny gallstones -MRCP showed cholelithiasis and moderate pericholecystic edema. -Lipase was 43 -surgery was consulted and scheduled patient for surgery tomorrow a.m.(laparoscopic versus open cholecystectomy) -keep NPO after midnight -start IV Zosyn -continue IV fluids 100 cc/hour -pain medication UTI -urinalysis suggestive UTI -on IV antibiotics Goals of care discussed with the patient and at bedside for 20min, FULL CODE Plan discussed with Dr. Dos Santos Assessment/Plan s/p laparoscopic cholecystectomy POD#1 abdomen soft , non distend, appropriately tender denies nausea or vomiting passing gas Plan: ok to advance diet as tolerated labs before discharge ok to discharge per surgery point of view patient to follow up in surgery clinic in 2 weeks Prognosis: Excellent Plan discussed with patient, Dr. Medrano Visit Coding Surgery Date of Service if different f: September 05, 2024 Billing Provider: DOROTHY MEDRANO MD Surgery Visit Codes: [id number] INP/OBS CARE(HIGH) AMARA SHARPE NP September 05, 2024 07:28
[2024-09-05 08:24] LABS: Basophils # (auto) 0 10 ^3/uL (0-0.2); Basophils % (auto) 0.4 % (0.0-2.0); Eosinophils # (auto) 0 10 ^3/uL (0-0.8); Eosinophils % (auto) 0.2 % (0.0-7.0); Hematocrit 42.7 % (36.0-46.0); Hemoglobin 14.4 g/dL (12.2-16.2); Lymphocytes # (auto) 1.7 10 ^3/uL (0.4-5.4); Lymphocytes % (auto) 14.1 % (10.0-50.0); Mean Corpuscular Hgb Conc. 33.7 g/dL (32.0-36.0); Mean Corpuscular Volume 86.3 fL (80.0-100.0); Monocytes # (auto) 0.5 10 ^3/uL (0-1.3); Monocytes % (auto) 4.6 % (0.0-12.0); Neutrophils # (auto) 9.6 10 ^3/uL (1.6-8.6); Neutrophils % (auto) 80.7 % (37.0-80.0); Nucleated Red Blood Cells % 0.1 %; Platelet Count (auto) 230 10^3/uL (140-450); Red Blood Cells 4.96 10^6/uL (4.0-5.20); Red Cell Distribution Width 15.2 % (11.8-14.3); White Blood Cell 11.9 10^3/uL (4.4-10.8)
--- NOTE | 2024-09-05 11:04 | DVH ---
Exam: XY KUB ABDOMEN SINGLE VIEW Indication: acute [place] Comparison: XY KUB ABDOMEN SINGLE VIEW on DOS: 09/03/24 Technique: 1 radiographic views of the abdomen. Findings: Nonspecific bowel-gas pattern. There is no definite evidence for pneumoperitoneum. No abnormal calcifications noted. Impression: Nonspecific bowel-gas pattern.
--- NOTE | 2024-09-05 12:36 | DVHPN2 ---
Subjective The patient is seen and examined at bedside. The patient passed flatus. Patient tolerated clear liquid diet. Reviewed: Care Plan, H&P, Labs, Medications, Previous Orders, Radiology Changes from previous H/P or p: No Changes Gastrointestinal: Nausea, Vomiting, Abdominal Pain Objective Vitals Vital Signs Date Time Temp Pulse Resp B/P (MAP) Pulse Ox O2 Delivery O2 Flow Rate FiO2 09/05/24 12:21 97.6 55 17 103/66 (78) 96 97.6 09/04/24 20:00 Room Air* 0 21 Intake/Output Intake and Output 09/05/24 07:00 Intake Total 1460 ml Output Total 1000 ml Balance 460 ml Intake Oral 1160 ml IV Total 300 ml Output Urine Total 1000 ml General Appearance: Alert, Oriented X3, Cooperative, No acute distress HEENT: Atraumatic, PERRLA, EOMI, Mucous membr. moist/pink Neck: Supple Lungs: Clear to auscultation, Normal air movement Cardiovascular: Regular rate, Normal S1, Normal S2, No murmurs, Gallops, Rubs Abdomen: Normal bowel sounds, Soft, No tenderness Neuro: Cranial nerves 3-12 NL Psych/Mental Status: Mental status NL Medications Current Medications Medications Dose Ordered Sig/Ba Route Start Time Stop Time Status Last Admin Dose Admin Sodium Chloride 1,000 ml @ 100 mls/hr Q10H IV 09/02/24 09:45 09/04/24 22:25 100 MLS/HR Acetaminophen/ Hydrocodone Bitart 1 tab Q4HP PRN PO 09/02/24 09:45 Ondansetron HCl 4 mg Q4HP PRN IV 09/02/24 09:45 Acetaminophen 650 mg Q6HP PRN PO 09/02/24 09:45 Morphine Sulfate 2 mg Q4HPRN PRN IV 09/02/24 09:45 09/04/24 22:27 2 MG Piperacillin Sod/ Tazobactam Sod 100 ml @ 25 mls/hr Q8HR@0500,1300,2100 IV 09/03/24 21:00 09/05/24 10:10 25 MLS/HR Laboratory Results Laboratory Tests 09/04/24 05:58 09/05/24 08:13 LFT Test 09/05/24 08:13 Total Bilirubin 0.9 mg/dL (0.2-1.0) Urinalysis Test 09/02/24 08:03 Urine Color Light-brown (Yellow) Urine Clarity Turbid (Clear) H Urine pH 8.5 (5.0-9.0) Urine Specific [place] 1.008 (1.001-1.035) Urine Protein Trace (Negative) H Urine Ketones 1+ (Negative) H Urine Blood 3+ /uL (Negative) H Urine Nitrite Negative (Negative) Urine Bilirubin Negative (Negative) Urine Urobilinogen Normal mg/dL (Negative) Urine Leukocyte Esterase Trace /uL (Negative) Urine RBC 358 /hpf (0 - 4) Urine Microscopic WBC 18 /HPF (0-5) H Urine Squamous Epithelial Cells Few /hpf (<5) Urine Bacteria Few /hpf (None Seen) H Urine Glucose Normal mg/dL (Normal) Urine Test Negative (Negative) Labs and/or images reviewed: Labs reviewed by me Assessment/Plan Assessment/Plan Acute right upper quadrant abdominal pain likely due to acute cholelithiasis Possible acute cholecystitis UTI Leukocytosis Continuing current management. Continuing with IV fluid. Continuing with IV antibiotics Zosyn. Continuing with pain medication for pain Control. Continuing with Zofran p.r.n. for nausea or vomiting. Advance diet to regular diet. Encouraged the patient to be out of bed and ambulate. Since her WBC increase we will monitor and repeat WBC in a.m. Discharge planning Plan discussed with: Patient, Spouse Date of Service: September 05, 2024 Billing Provider: JUSTINA DORAN MD Common Visit Codes: [id number] INP/OBS CARE(HIGH) JUSTINA DORAN MD September 05, 2024 12:36
[2024-09-06 01:00] VITALS: BP 90/52; PULSE 54; RESP 18; TEMP 98.1; O2SAT 95
[2024-09-06 05:00] VITALS: BP 93/53; PULSE 63; RESP 18; TEMP 96.4; O2SAT 93
[2024-09-06 08:06] LABS: Basophils # (auto) 0 10 ^3/uL (0-0.2); Basophils % (auto) 0.7 % (0.0-2.0); Eosinophils # (auto) 0.1 10 ^3/uL (0-0.8); Eosinophils % (auto) 0.9 % (0.0-7.0); Hematocrit 37.2 % (36.0-46.0); Hemoglobin 12.7 g/dL (12.2-16.2); Lymphocytes # (auto) 2.2 10 ^3/uL (0.4-5.4); Lymphocytes % (auto) 38.4 % (10.0-50.0); Mean Corpuscular Hemoglobin 29.4 pg (28.0-32.0); Mean Corpuscular Hgb Conc. 34.3 g/dL (32.0-36.0); Mean Corpuscular Volume 85.7 fL (80.0-100.0); Monocytes # (auto) 0.3 10 ^3/uL (0-1.3); Monocytes % (auto) 5.2 % (0.0-12.0); Neutrophils # (auto) 3.2 10 ^3/uL (1.6-8.6); Neutrophils % (auto) 54.8 % (37.0-80.0); Platelet Count (auto) 200 10^3/uL (140-450); Red Blood Cells 4.34 10^6/uL (4.0-5.20); Red Cell Distribution Width 14.9 % (11.8-14.3); White Blood Cell 5.8 10^3/uL (4.4-10.8)
--- NOTE | 2024-09-06 08:57 | DVH ---
Date: 09/06/2024 08:09 AM Examination: XY KUB ABDOMEN SINGLE VIEW History: r/o acute [place] Comparison: XY KUB ABDOMEN SINGLE VIEW on DOS: 09/05/24, XY KUB ABDOMEN SINGLE VIEW on DOS: 09/03/24 TECHNIQUE: Frontal views of the abdomen was obtained. FINDINGS: Bowel gas pattern is unremarkable. The lung bases are unremarkable. No acute osseous abnormality identified. IMPRESSION: Nonobstructive bowel gas pattern. Large stool burden.
[2024-09-06 09:30] VITALS: BP 90/56; PULSE 54; RESP 18; TEMP 98.4; O2SAT 94
--- NOTE | 2024-09-06 10:31 | DVHPN2 ---
Progress Note Date Seen: September 06, 2024 Has the PT tested + for MRSA If YES, has PT been informed?: No Medical Necessity Reason Pt with a Central, PICC or Fol: No Objective vital signs Vital Sign Date Time Temp Pulse Resp B/P (MAP) Pulse Ox O2 Delivery O2 Flow Rate FiO2 09/06/24 09:30 98.4 54 18 90/56 (67) 94 98.4 09/05/24 20:00 Room Air* 0 21 Total Intake and Output 09/05/24 09/05/24 09/06/24 15:00 23:00 07:00 Intake Total 320 ml 720 ml Balance 320 ml 720 ml medications Current Medications Medications Dose Ordered Sig/Ba Route Start Time Stop Time Status Last Admin Dose Admin Sodium Chloride 1,000 ml @ 100 mls/hr Q10H IV 09/02/24 09:45 09/04/24 22:25 100 MLS/HR Acetaminophen/ Hydrocodone Bitart 1 tab Q4HP PRN PO 09/02/24 09:45 Ondansetron HCl 4 mg Q4HP PRN IV 09/02/24 09:45 Acetaminophen 650 mg Q6HP PRN PO 09/02/24 09:45 Morphine Sulfate 2 mg Q4HPRN PRN IV 09/02/24 09:45 09/04/24 22:27 2 MG Piperacillin Sod/ Tazobactam Sod 100 ml @ 25 mls/hr Q8HR@0500,1300,2100 IV 09/03/24 21:00 09/06/24 05:00 25 MLS/HR laboratory and microbiology Laboratory Tests 09/06/24 07:29 09/04/24 05:58 Test 09/04/24 05:58 Range/Units Serum Glucose 78 74-106 mg/dL Problem List/Assessment/Plan Problem List/Assessment/Plan 09/06/24 dc instructions given, surgically stable, ok to send home, return to see me in two weeks, diet as tolerated, may shower tomorrow Plan discussed with: Patient Dietary Evaluation Review Comments: 1) If patient remains NPO > 7 days, consider EN/TPN to meet at least 75% estimated needs 2) Advance to low-fat diet when medically feasible pending APARTMENT MAINTENANCE WORKER approval 3) Refer to outpatient RD for weight management 4) Follow-up with gastroenterology 5) Continue to monitor I&O, labs, and skin integrity Expected Outcomes/Goals: 1) patient to receive nutrition support within 7 days of NPO status 2) diet to advance 3) appetite and labs to improve 4) f/u in 2-3 days DOROTHY CM MD September 06, 2024 10:31
[2024-09-06 12:30] VITALS: BP 116/62; PULSE 55; RESP 18; TEMP 97.2; O2SAT 93
--- NOTE | 2024-09-06 14:16 | DVHDSRES ---
Discharge Summary Date of Admission Resident Creating Document: YAKELIN FUCHS RESIDENT September 02, 2024 at 09:43 Date of Discharge: September 06, 2024 Admitting Diagnosis Intractable abdominal pain with nausea and vomiting probable UTI versus acute cholecystitis History of Wounds: none Labs/Diagnostic Data: Laboratory Results Test 09/06/24 07:29 09/05/24 08:13 09/04/24 05:58 09/03/24 10:06 White Blood Count 5.8 10^3/uL (4.4-10.8) Red Blood Count 4.34 10^6/uL (4.0-5.20) Hemoglobin 12.7 g/dL (12.2-16.2) Hematocrit 37.2 % (36.0-46.0) Mean Corpuscular Volume 85.7 fL (80.0-100.0) Mean Corpuscular Hemoglobin 29.4 pg (28.0-32.0) Mean Corpuscular Hemoglobin Concent 34.3 g/dL (32.0-36.0) Red Cell Distribution Width 14.9 % (11.8-14.3) Platelet Count 200 10^3/uL (140-450) Mean Platelet Volume 9.9 fL (6.9-10.8) Neutrophils (%) (Auto) 54.8 % (37.0-80.0) Lymphocytes (%) (Auto) 38.4 % (10.0-50.0) Monocytes (%) (Auto) 5.2 % (0.0-12.0) Eosinophils (%) (Auto) 0.9 % (0.0-7.0) Basophils (%) (Auto) 0.7 % (0.0-2.0) Neutrophils # (Auto) 3.2 10 ^3/uL (1.6-8.6) Lymphocytes # (Auto) 2.2 10 ^3/uL (0.4-5.4) Monocytes # (Auto) 0.3 10 ^3/uL (0-1.3) Eosinophils # (Auto) 0.1 10 ^3/uL (0-0.8) Basophils # (Auto) 0 10 ^3/uL (0-0.2) Nucleated Red Blood Cells 0.0 % Total Bilirubin 0.9 mg/dL (0.2-1.0) Sodium Level 143 mmol/L (136-145) Potassium Level 3.5 mmol/L (3.5-5.1) Chloride Level 110 mmol/L (98-107) Carbon Dioxide Level 25 mmol/L (20-31) Anion Gap 8 (5-15) Blood Urea Nitrogen 11 mg/dL (9-23) Creatinine 0.75 mg/dL (0.550-1.02) Glomerular Filtration Rate Calc 101 mL/min (>90) BUN/Creatinine Ratio 14.7 (10.0-20.0) Serum Glucose 78 mg/dL (74-106) Calcium Level 8.9 mg/dL (8.7-10.4) Prothrombin Time 10.9 sec (9.3-11.8) Prothrombin Time INR 1.03 (0.9-1.15) Activated Partial Thromboplast Time 29.0 SEC (24.5-34.5) Test 09/03/24 07:01 09/02/24 08:03 09/02/24 05:58 Aspartate Amino Transferase (AST) 30 U/L (13-40) Alanine Aminotransferase (ALT) 43 U/L (7-40) Alkaline Phosphatase 67 U/L (46-116) Total Protein 6.1 g/dL (5.7-8.2) Albumin 3.7 g/dL (3.2-4.8) Urine Color Light-brown (Yellow) Urine Clarity Turbid (Clear) Urine pH 8.5 (5.0-9.0) Urine Specific [place] 1.008 (1.001-1.035) Urine Protein Trace (Negative) Urine Ketones 1+ (Negative) Urine Blood 3+ /uL (Negative) Urine Nitrite Negative (Negative) Urine Bilirubin Negative (Negative) Urine Urobilinogen Normal mg/dL (Negative) Urine Leukocyte Esterase Trace /uL (Negative) Urine RBC 358 /hpf (0 - 4) Urine Microscopic WBC 18 /HPF (0-5) Urine Squamous Epithelial Cells Few /hpf (<5) Urine Bacteria Few /hpf (None Seen) Urine Glucose Normal mg/dL (Normal) Urine Test Negative (Negative) Direct Bilirubin 0.2 mg/dL (<0.3) Amylase Level 106 U/L (30-118) Lipase 43 U/L (12-53) Other Laboratory Tests 09/06/24 07:29 09/04/24 05:58 Brief Hx & Hospital Course: This is a 44-year-old female with no past medical history of relevance aside from history of who presented to the ED with chief complaint of abdominal pain. The patient reported a right upper quadrant sharp pain rated as 10/10 that gets worse after eating food. The patient described a localized pain in the right upper quadrant that occasionally radiates to the right shoulder and back. Patient states that does not take any medication. The patient denied any associated nausea, vomiting, fever/chills or any other symptoms. On Admission, CBC and BNP were grossly unremarkable including total bilirubin and liver enzymes. Lipase and amylase were also normal range. Urinalysis came back positive suggesting UTI. We ordered a gallbladder ultrasound which showed cholelithiasis with possible acute cholecystitis. CT of the abdomen showed fluid distended gallbladder with tiny gallstones. MRCP was performed as well showing cholelithiasis and moderate pericholecystic edema, there was also small volume sludge versus artifact in the mid common bile duct. Surgery was consulted for possible acute cholecystitis and patient was admitted for further assessment and management. Surgeon recommended a cholecystectomy. Patient underwent laparoscopic cholecystectomy. Post surgery diet was slowly advanced which the patient tolerated well. Patient passed flatus but had not passed stool in the hospital but was cleared from surgery for discharge. DIscharge plan - discharged home - Follow up in the surgery outpatient clinic in 2 weeks - meds- cephalexin 500mg bid X 5 days Naproxen 500mg bidPRN Colace 100mg bidPRN for constipation Consults/Reason for consult Surgical consultation for suspected acute cholecystitis Operations or Procedures DATE OF SURGERY: 09/04/2024 PREOPERATIVE DIAGNOSES: * Cholelithiasis. * Cholecystitis. POSTOPERATIVE DIAGNOSES: * Cholelithiasis. * Cholecystitis. 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 PROCEDURES: * Laparoscopy. * Laparoscopic cholecystectomy. DESCRIPTION OF PROCEDURE: Under general endotracheal anesthesia with the patient's skin prepped and draped, supraumbilical incision was made and Veress needle inserted by the hanging drop technique to establish pneumoperitoneum to 15 mmHg pressure by insufflation with carbon dioxide. With the abdomen fully distended, the needle was removed and replaced with a 5 mm trocar port through which a 0-degree viewing laparoscope was inserted and under direct vision, 5 and 10 mm ports inserted through the abdominal wall in the anterior axillary line at the level of the umbilicus and the subxiphoid midline skin respectively. Instrumentation was then introduced. Laparoscopy was conducted. There was no evidence of unexpected pathology. The gallbladder was acutely inflamed, infected, and was placed on tension. The cystic duct and cystic artery were circumferentially dissected, skeletonized, and traced into the hepatocystic triangle so as to minimize the potential for inadvertent injury to the common bile duct. The cystic duct and cystic artery were then divided between metallic clips again away from the common duct so as to minimize potential for injury to the common duct. Subsequently, the gallbladder was resected from its liver bed. Part of the gallbladder was intrahepatic which resulted in exposure of some of the liver parenchyma which necessitated application of small amount of hemostatic SNoW in order to assist with hemostasis. The fully mobilized gallbladder was removed from the peritoneal cavity through the subxiphoid 10 mm port site. The right upper quadrant was profusely irrigated. Irrigant was aspirated. Hemostasis was found to be complete. At the termination of the procedure, there was no evidence of bleeding from either the port sites or from the liver bed. The instrumentation was withdrawn. Pneumoperitoneum was evacuated. Fascial defect closed using 0 Vicryl. Wound was approximated using Monocryl sutures, Dermabond glue, and Steri-Strips. The patient remained stable throughout the procedure, left the operating room following an accurate needle and sponge count. Her , Kirill, was thoroughly informed at [phone]. Darren Medrano MD PF/JPS Condition at Discharge: Good Final Diagnosis/Problems List Acute right upper quadrant abdominal pain likely due to acute cholelithiasis acute cholecystitis s/p lap cholecystectomy uti less likely Discharge Disposition: Home Discharge Instruct/Medications Diet: Regular Activity: Light activity Activity comment: light activity for 2 weeks avoid lifting weight more than 5 pounds Follow Up/Referral: Follow up in the discharge clinic in 1 week Follow up in the surgery outpatient clinic in 2 weeks with Medications: as per EMR Discharge Statement: "Patient was advised to return to the ER or call 911 if any headaches, dizziness, shortness of breath, chest pain, abdominal pain, bleeding, fevers, or worsening of medical condition. Patient was counseled about treatment plan, medications, possible side effects, patientverbalized understanding. All questions were answered to the best of my ability. This discharge took greater then 30 minutes in planning, reviewing documentation, counseling the patient, and discussing with other team members." ASSESSMENT ASSESSMENT Assessment Acute right upper quadrant abdominal pain likely due to acute cholelithiasis ?acute cholecystitis s/p lap cholecystectomy uti less likely Date of Service: September 06, 2024 Billing Provider: DB IVORY DO Common Visit Codes: 58085-WQK/OBS DISCH DAY >30min YAKELIN FUCHS RESIDENT September 06, 2024 14:16 DB IVORY DO September 06, 2024 20:40
[2024-09-06] MEDS ORDERED: DOCU-94 PO (14:18)
[2024-09-06] MEDS ORDERED: NAP500T PO (14:18)
[2024-09-06] MEDS ORDERED: CEPH500T PO (14:18)
[2024-09-06 14:36] VITALS: BP 116/62; PULSE 55; RESP 18; TEMP 97.2; O2SAT 93
== END 2024-09-06 15:29 | disposition home or self-care (01) | DRG 263 ==
LOC: ER 04:54 → OVERFLOW 09:43 → CENTRAL 09-03 02:05
PROVIDERS: ADMIT Internal Medicine; ATTEND Emergency Medicine
PROC: 0FT44ZZ Resection of Gallbladder, Percutaneous Endoscopic Approach (ICD-10-PCS; principal; 2024-09-04 08:04)
DX: K80.00 Calculus of gallbladder with acute cholecystitis without obstruction (principal); K82.8 Other specified diseases of gallbladder; N39.0 Urinary tract infection, site not specified; Z98.891 History of uterine scar from previous surgery
CPT/HCPCS: 36415; 74018; 74176; 74181; 76705; 80048; 80053; 80076; 81001; 81025; 82150; 82247; 83690; 84075; 84450; 84460; 85025; 85610; 85730; 86850; 86900; 86901; 96361; 96374; 96375; G0378; J1100; J1885; J2250; J2405; J2470; J2543; J2704; J3490